=== PATIENT | female | born 1980 | race Caucasian/White ===

== ENCOUNTER 2016-04-18 01:58 | Emergency (ER) | payer MEDICAID | END 2016-04-18 05:52 | disposition home or self-care (01) | DX: O99.89 Other specified diseases and conditions complicating pregnancy, childbirth and the puerperium (principal); R10.9 Unspecified abdominal pain; Z3A.00 Weeks of gestation of pregnancy not specified ==

== ENCOUNTER 2016-04-20 16:09 | Emergency (ER) | payer MEDICAID | END 2016-04-20 20:00 | disposition home or self-care (01) | DX: O03.9 Complete or unspecified spontaneous abortion without complication (principal) ==

== ENCOUNTER 2016-04-22 10:08 | Outpatient (CLI) | payer MEDICAID | END 2016-04-22 10:09 | disposition home or self-care (01) | DX: O03.4 Incomplete spontaneous abortion without complication (principal) ==

== ENCOUNTER 2016-04-24 15:15 | Outpatient (CLI) | payer MEDICAID | END 2016-04-24 15:16 | disposition home or self-care (01) | DX: O03.9 Complete or unspecified spontaneous abortion without complication (principal) ==

== ENCOUNTER 2017-05-16 13:09 | Outpatient (CLI) | payer MEDICAID | END 2017-05-16 13:10 | disposition home or self-care (01) | LOC: LAB.N 13:09 | PROVIDERS: ATTEND Obstetrics & Gynecology | DX: N97.9 Female infertility, unspecified (principal) | CPT/HCPCS: 36415; 84144 ==

== ENCOUNTER 2018-09-10 15:32 | Outpatient (CLI) | payer MEDICAID ==
--- NOTE | 2018-09-11 15:13 | XRAY Report ---
Reason: FOOT PAIN Procedure Date: 09/10/2018 Accession Number: [id number] / [id number] Procedure: XRN - Foot 3 View LT CPT Code: FULL RESULT: EXAM: LEFT FOOT RADIOGRAPHY EXAM DATE: 09/10/2018 03:56 PM. CLINICAL HISTORY: FOOT PAIN. COMPARISON: None available. TECHNIQUE: 3 views. FINDINGS: Bones: The bones appear intact without evidence of a fracture. There is a 0.4 cm plantar calcaneal heel spur. Joints: Normal. No subluxations. Soft Tissues: There is subcutaneous phleboliths in the anterior lower leg. No soft tissue swelling. IMPRESSION: No acute abnormality. RADIA
== END 2018-09-10 15:33 | disposition home or self-care (01) ==
LOC: DI.N 15:32
PROVIDERS: ATTEND Family Medicine
DX: M79.672 Pain in left foot (principal)

== ENCOUNTER 2021-03-07 19:16 | Emergency (ER) | payer MEDICAID ==
[2021-03-07] MEDS ORDERED: ALBUTEROL 1 PUFF INH STA (20:07)
--- NOTE | 2021-03-07 20:12 | ED Physician Documentation ---
History of Present Illness - Stated complaint Stated Complaint: COUGH,CONGESTION,SOA - Chief complaint Chief Complaint: Resp - Additonal information Additional information: 40-year-old female presents emergency department for evaluation of about 10 days cough cold congestion and mild shortness of air. She does have a history of asthma as well as obesity. She is not yet vaccinated for COVID-19. She has ran out of her inhaler and feels that her cough is worse since then. No abdominal pain nausea or vomiting. Her younger daughter has started to get sick with similar symptoms but has not presented for medical care. Denies tobacco or vaping. No alcohol or cannabis use. Review of Systems Constitutional: reports: Myalgias, Fatigue. denies: Fever Eyes: reports: Reviewed and negative Ears: reports: Reviewed and negative Nose: reports: Rhinorrhea / runny nose, Congestion Throat: denies: Sore throat Cardiac: denies: Chest pain / pressure, Palpitations, Calf pain Respiratory: reports: Dyspnea, Cough. denies: Hemoptysis GI: reports: Reviewed and negative : reports: Reviewed and negative PD PAST MEDICAL HISTORY - Past Medical History Respiratory: Asthma - Past Surgical History Past Surgical History: Yes /MANAGER ASSESSMENT: section - Present Medications Home Medications: Ambulatory Orders Medication Instructions Recorded Confirmed Prenatl Vit6/Iron/FA/B12/Ca/D3 1 tab PO DAILY 04/18/16 04/20/16 [Mteryti Combo Pack] Albuterol Sulf [Ventolin Hfa 1 - 2 puffs INH Q4HR PRN #1 inhaler 03/07/21 Inhaler] Amox/Clav 875/125 [Augmentin] 1 each PO Q12H #14 tablet 03/07/21 Azithromycin [Zithromax] 0 mg PO DAILY #6 tablet 03/07/21 Benzonatate [Tessalon] 200 mg PO TID PRN #20 cap 03/07/21 - Allergies Allergies/Adverse Reactions: Allergies Allergy/AdvReac Type Severity Reaction Status Date / Time Sulfa (Sulfonamide Allergy Edema Verified 03/07/21 19:32 Antibiotics) - Social History Does the pt smoke?: No Smoking Status: Never smoker Does the pt drink ETOH?: No Does the pt have substance abuse?: No - Immunizations Immunizations are current?: Yes - POLST Patient has POLST: No PD ED PE NORMAL - General General: Alert and oriented X 3, No acute distress, Other (Morbidly obese) - HEENT HEENT: Atraumatic, Ears normal, Moist mucous membranes, Pharynx benign - Neck Neck: Supple, no meningeal sign. No: No adenopathy - Cardiac Cardiac: RRR, No murmur - Respiratory Respiratory: No respiratory distress, Clear bilaterally - Abdomen Abdomen: Normal bowel sounds, Soft - Back Back: No CVA TTP - Derm Derm: Normal color, Warm and dry, No rash - Extremities Extremities: No deformity, No tenderness to palpate, Normal ROM s pain - Neuro Neuro: Alert and oriented X 3 Eye Opening: Spontaneous Motor: Obeys Commands Verbal: Oriented GCS Score: 15 - Psych Psych: Normal mood Results - Vitals Vitals: Vital Signs - 24 hr 03/07/21 03/07/21 19:27 20:24 Temperature 36.0 C L Heart Rate 74 88 Respiratory 20 18 Rate Blood Pressure 130/69 O2 Saturation 98 Oxygen O2 Source Room air - Rads (name of study) CXR Radiology: Final report received (Patchy airspace opacities peripherally in the left lung consistent with pneumonia.) PD MEDICAL DECISION MAKING - ED course Complexity details: reviewed results, re-evaluated patient, considered differential, d/w patient ED course: 40-year-old female presents emergency department for evaluation of 10 days productive cough. No fevers. She does have a history of asthma and has run out of her albuterol. She does report post-tussive emesis x1. She has not yet vaccinated for COVID-19. Screening chest x-ray is suggestive of pneumonia in the left lung. Patient will be started on Augmentin and azithromycin. We will also refill her albuterol as well as write a prescription for Tessalon Perles. A COVID-19 test is pending. Patient is advised to remain in quarantine until test results are known. Reassuringly she has no hypoxia and her cardiopulmonary auscultation was unremarkable thus I feel she is stable for outpatient treatment of the community-acquired pneumonia. Emergent return precautions were discussed. Departure - Departure Disposition: 01 Home, Self Care Clinical Impression: Pneumonia Qualifiers: Pneumonia type: due to unspecified organism Laterality: left Lung location: unspecified part of lung Qualified Code(s): J18.9 - Pneumonia, unspecified organism Condition: Stable Record reviewed to determine appropriate education?: Yes Instructions: ED Pneumonia Adult Follow-Up: Virgil Colunga MD [Primary Care Provider] - Prescriptions: Albuterol Sulf [Ventolin Hfa Inhaler] 1 - 2 puffs INH Q4HR PRN #1 inhaler PRN Reason: Shortness Of Air/Wheezing Amox/Clav 875/125 [Augmentin] 1 each PO Q12H #14 tablet Benzonatate [Tessalon] 200 mg PO TID PRN #20 cap PRN Reason: Cough Azithromycin [Zithromax] 0 mg PO DAILY #6 tablet Comments: Mayela nagel are seen in the emergency department today for cough congestion shortness of air that has not improved over the last 10 days or so. Chest x-ray suggest that you have a mild pneumonia in your left lung. Reassuringly your lungs sounded relatively clear and your oxygen levels are normal. I have sent a prescription to the [facility] in [place] for 2 antibiotics as well as a refill of your inhaler and a cough suppressant. We do have a COVID-19 test pending on you. It may take 2 to 3 days to result. We will call you only if the results are positive. At any point you feel that your symptoms are worsening, you develop high fevers have severe chest pain or shortness of air then please return immediately to the ER for a second evaluation. You have a Covid test pending. You need to self quarantine until the result is done and negative. Do not leave your house. Do not get near anybody. The results should be done in 48 to 72 hours. We will call with a positive result, the fastest way to get a negative result for confirmation though is to go to the hospital website at [email or web address], click on the my [facility] tab and sign up for the patient portal. If any friends or family get sick and would like to have a Covid test done, but do not have signs or symptoms that would necessitate being hospitalized, there are multiple local options for Covid testing. [facility] keeps an updated list of testing and vaccination options at [email or web address]
--- NOTE | 2021-03-07 20:49 | XRAY Report ---
PROCEDURE: Chest 1 View X-Ray INDICATIONS: chest pain TECHNIQUE: One view of the chest was acquired. COMPARISON: None. FINDINGS: Surgical changes and devices: None. Lungs and pleura: There are patchy airspace opacities peripherally within the left lung. No pleural effusions or pneumothorax. Mediastinum: Mediastinal contours appear normal. Heart size is normal. Bones and chest wall: No suspicious bony lesions. Overlying soft tissues appear unremarkable. IMPRESSION: 1. Patchy airspace opacities peripherally in the left lung consistent with pneumonia. Reviewed by: Willy Gomez MD on 03/07/2021 8:48 PM [facility] Approved by: Willy Gomez MD on 03/07/2021 8:48 PM [facility] Station ID: [id number]
[2021-03-07 21:14] VITALS: BP 127/78
== END 2021-03-07 21:24 | disposition home or self-care (01) ==
LOC: ED 19:16
DX: U07.1 COVID-19 (principal); J12.82 Pneumonia due to coronavirus disease 2019; J45.909 Unspecified asthma, uncomplicated; E66.01 Morbid (severe) obesity due to excess calories; Z68.43 Body mass index [BMI] 50.0-59.9, adult
CPT/HCPCS: 94640; 94664; 99283; 99284

== ENCOUNTER 2021-07-06 10:41 | Outpatient (CLI) | payer MEDICAID ==
[2021-07-06 17:54] LABS: BASOPHILS % (AUTO) 0.2 %; EOSINOPHILS # (AUTO) 0.1 10^3/uL (0.0-0.7); EOSINOPHILS % (AUTO) 1.7 %; HGB - HEMOGLOBIN 12.9 g/dL (12.0-16.0); LYMPHOCYTES # (AUTO) 1.5 10^3/uL (1.5-3.5); LYMPHOCYTES % (AUTO) 30.4 %; MEAN CORPUSCULAR HEMOGLOBIN 28.9 pg (27.0-31.0); MEAN CORPUSCULAR HGB CONC 32.3 g/dL (32.0-36.0); MEAN CORPUSCULAR VOLUME 89.7 fL (81.0-99.0); MEAN PLATELET VOLUME 12.5 fL (7.9-10.8); MONOCYTES # (AUTO) 0.4 10^3/uL (0.0-1.0); MONOCYTES % (AUTO) 7.2 %; NEUTROPHILS # (AUTO) 2.9 10^3/uL (1.5-6.6); NEUTROPHILS % (AUTO) 60.3 %; PLT - PLATELET COUNT 246 10^3/uL (130-450); RED BLOOD COUNT 4.46 10^6/uL (4.20-5.40); RED CELL DISTRIBUTION WIDTH 13.8 % (12.0-15.0); WHITE BLOOD COUNT 4.8 x10^3/uL (4.8-10.8)
[2021-07-06 18:22] LABS: ALBUMIN 3.5 g/dL (3.2-5.5); ALBUMIN/GLOBULIN RATIO 1.1 (1.0-2.2); ALKALINE PHOSPHATASE 32 IU/L (42-121); ALT ALANINE AMINOTRANSFERASE 15 IU/L (10-60); AST ASPARTATE AMINOTRANSFERASE 15 IU/L (10-42); BILIRUBIN,TOTAL 0.6 mg/dL (0.2-1.0); BUN - BLOOD UREA NITROGEN 17 mg/dL (6-20); CALCIUM 8.9 mg/dL (8.5-10.3); CARBON DIOXIDE - CO2 25 mmol/L (21-32); CHLORIDE 105 mmol/L (101-111); CHOL/HDL RATIO 2.6 (<4.4); CHOLESTEROL 150 mg/dL; CREATININE 0.6 mg/dL (0.4-1.0); GFR - MDRD 110 (>89); GLUCOSE 98 mg/dL (70-100); HDL CHOLESTEROL 57 mg/dL; LDL CHOLESTEROL,CALCULATED 79 mg/dL; LDL/HDL RATIO 1.4 (<4.4); SODIUM 138 mmol/L (135-145); TOTAL PROTEIN 6.8 g/dL (6.7-8.2); TRIGLYCERIDES 68 mg/dL; VLDL CHOLESTEROL 14 mg/dL
[2021-07-06 18:37] LABS: THYROID STIMULATING HORMONE 1.59 uIU/mL (0.34-5.60)
[2021-07-06 21:13] LABS: ESTIMATED AVERAGE GLUCOSE 108 mg/dL (70-100); HEMOGLOBIN A1c% 5.4 % (4.27-6.07)
== END 2021-07-06 10:42 | disposition home or self-care (01) ==
LOC: LAB.N 10:41
PROVIDERS: ATTEND Nurse Practitioner Family
DX: Z00.01 Encounter for general adult medical examination with abnormal findings (principal); E66.01 Morbid (severe) obesity due to excess calories; E55.9 Vitamin D deficiency, unspecified
CPT/HCPCS: 36415; 80053; 80061; 82306; 83036; 83721; 84443; 85025